=== PATIENT | female | born 2000 | race Caucasian/White ===

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

== ENCOUNTER 2018-03-23 13:50 | Emergency (ER) | payer OTHER, MEDICAID ==
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
[2018-03-23 14:09] VITALS: BP 124/71
[2018-03-23] MEDS ORDERED: ACETAMINOPHEN 325 MG TABLET PO STA (14:39)
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
== END 2018-03-23 16:35 | disposition home or self-care (01) ==
LOC: ED 13:50
DX: S20.312A Abrasion of left front wall of thorax, initial encounter (principal); S16.1XXA Strain of muscle, fascia and tendon at neck level, initial encounter; V43.52XA Car driver injured in collision with other type car in traffic accident, initial encounter
CPT/HCPCS: 72040; 99282; 99283; A9270

== ENCOUNTER 2018-11-30 08:00 | Outpatient (CLI) | payer MEDICAID ==
[2018-11-30 19:23] LABS: BASOPHILS # (AUTO) 0.1 10^3/uL (0.0-0.1); EOSINOPHILS # (AUTO) 0.2 10^3/uL (0.0-0.7); EOSINOPHILS % (AUTO) 2.9 %; HGB - HEMOGLOBIN 13.7 g/dL (12.0-16.0); LYMPHOCYTES # (AUTO) 2.4 10^3/uL (1.5-3.5); LYMPHOCYTES % (AUTO) 37.6 %; MEAN CORPUSCULAR HEMOGLOBIN 29.5 pg (27.0-31.0); MEAN CORPUSCULAR HGB CONC 32.1 g/dL (32.0-36.0); MEAN CORPUSCULAR VOLUME 91.9 fL (81.0-99.0); MEAN PLATELET VOLUME 7.5 fL (7.9-10.8); MONOCYTES # (AUTO) 0.5 10^3/uL (0.0-1.0); MONOCYTES % (AUTO) 7.3 %; NEUTROPHILS # (AUTO) 3.3 10^3/uL (1.5-6.6); NEUTROPHILS % (AUTO) 51.2 %; PLT - PLATELET COUNT 308 10^3/uL (130-450); RED BLOOD COUNT 4.65 10^6/uL (4.20-5.40); RED CELL DISTRIBUTION WIDTH 13.5 % (12.0-15.0); WHITE BLOOD COUNT 6.4 x10^3/uL (4.8-10.8)
[2018-11-30 19:34] LABS: ALBUMIN 4.5 g/dL (3.2-5.5); ALBUMIN/GLOBULIN RATIO 1.4 (1.0-2.2); BILIRUBIN,TOTAL 0.6 mg/dL (0.2-1.0); CALCIUM 9.4 mg/dL (8.5-10.3); CREATININE 0.6 mg/dL (0.4-1.0); TOTAL PROTEIN 7.7 g/dL (6.7-8.2)
[2018-11-30 19:37] LABS: THYROID STIMULATING HORMONE 0.93 uIU/mL (0.34-5.60)
[2018-11-30 19:39] LABS: FREE T4 (FREE THYROXINE) 0.85 ng/dL (0.58-1.64)
[2018-11-30 19:48] LABS: FOLATE 17.57 ng/mL (5.90 - >24.8)
== END 2018-11-30 23:59 | disposition home or self-care (01) ==
LOC: LAB.N 08:00
PROVIDERS: ATTEND Nurse Practitioner
DX: R53.83 Other fatigue (principal); E55.9 Vitamin D deficiency, unspecified
CPT/HCPCS: 36415; 80050; 82306; 82607; 82746; 84439; 84481

== ENCOUNTER 2018-12-15 08:00 | Outpatient (CLI) | payer MEDICAID ==
[2018-12-15 19:39] LABS: BASOPHILS % (AUTO) 0.6 %; EOSINOPHILS # (AUTO) 0.2 10^3/uL (0.0-0.7); EOSINOPHILS % (AUTO) 2.2 %; HGB - HEMOGLOBIN 13.2 g/dL (12.0-16.0); LYMPHOCYTES # (AUTO) 2.6 10^3/uL (1.5-3.5); LYMPHOCYTES % (AUTO) 32.7 %; MEAN CORPUSCULAR HEMOGLOBIN 29.6 pg (27.0-31.0); MEAN CORPUSCULAR HGB CONC 33.4 g/dL (32.0-36.0); MEAN CORPUSCULAR VOLUME 88.6 fL (81.0-99.0); MEAN PLATELET VOLUME 7.6 fL (7.9-10.8); MONOCYTES # (AUTO) 0.4 10^3/uL (0.0-1.0); MONOCYTES % (AUTO) 5.5 %; NEUTROPHILS # (AUTO) 4.6 10^3/uL (1.5-6.6); PLT - PLATELET COUNT 253 10^3/uL (130-450); RED BLOOD COUNT 4.46 10^6/uL (4.20-5.40); RED CELL DISTRIBUTION WIDTH 13.2 % (12.0-15.0); WHITE BLOOD COUNT 7.8 x10^3/uL (4.8-10.8)
[2018-12-15 20:05] LABS: ALBUMIN 4.1 g/dL (3.2-5.5); ALBUMIN/GLOBULIN RATIO 1.4 (1.0-2.2); BILIRUBIN,TOTAL 0.7 mg/dL (0.2-1.0); CALCIUM 9.1 mg/dL (8.5-10.3); CREATININE 0.7 mg/dL (0.4-1.0); TOTAL PROTEIN 7.1 g/dL (6.7-8.2)
[2018-12-15 20:08] LABS: THYROID STIMULATING HORMONE 1.61 uIU/mL (0.34-5.60)
[2018-12-15 20:10] LABS: FREE T4 (FREE THYROXINE) 0.8 ng/dL (0.58-1.64)
[2018-12-15 20:19] LABS: FOLATE 13.31 ng/mL (5.90 - >24.8)
== END 2018-12-15 23:59 | disposition home or self-care (01) ==
LOC: LAB.N 08:00
PROVIDERS: ATTEND Nurse Practitioner
DX: R53.83 Other fatigue (principal); E55.9 Vitamin D deficiency, unspecified
CPT/HCPCS: 36415; 80050; 82306; 82607; 82746; 84439; 84481

== ENCOUNTER 2018-12-16 13:26 | Outpatient (CLI) | payer MEDICAID ==
--- NOTE | 2018-12-16 14:35 | Ultrasound Report ---
Reason: ENLARGED THYROID Procedure Date: 12/16/2018 Accession Number: [id number] / [id number] Procedure: US - Head or Neck Soft Tissue CPT Code: FULL RESULT: EXAM: THYROID ULTRASOUND EXAM DATE: 12/16/2018 01:33 PM. CLINICAL HISTORY: Enlarged thyroid gland, follow-up. COMPARISON: None. TECHNIQUE: Real time sonographic imaging of the thyroid was performed by the brand leader. Multiple call center representative static images were saved for review. FINDINGS: THYROID GLAND: Right Lobe: 6.5 x 1.1 x 1.5 cm, volume 5.6 cc. Diffusely heterogeneous parenchyma with multiple small colloid cysts measuring up to 5 mm maximally. Right Lobe Nodules: No solid nodules evident. Left Lobe: 6.5 x 0.9 x 1.6 cm, volume 5.0 cc. Diffusely heterogeneous parenchyma with multiple small colloid cysts measuring up to 6 mm maximally. Left Lobe Nodules: No solid nodules evident. Isthmus: 0.2 cm AP. Isthmic Nodules: None. LYMPH NODES: No adenopathy demonstrated in the central or lateral compartment. OTHER: None. IMPRESSION: 1. Numerous tiny colloid cysts diffusely measuring up to 5 mm on the right and 6 mm on the left. 2. No solid masses or enlargement. 3. No adenopathy. Management recommendations are based on 2015 [place] [employer] Management Guidelines for Adult Patients with Thyroid Nodules and Differentiated Thyroid Cancer. RADIA
== END 2018-12-16 13:27 | disposition home or self-care (01) ==
LOC: DI 13:26
PROVIDERS: ATTEND Nurse Practitioner
DX: E04.1 Nontoxic single thyroid nodule (principal)
CPT/HCPCS: 76536

== ENCOUNTER 2019-06-23 08:00 | Outpatient (CLI) | payer MEDICAID ==
[2019-06-23 18:55] LABS: BILIRUBIN,URINE NEGATIVE (NEGATIVE); GLUCOSE, URINE (UA) NEGATIVE (NEGATIVE); KETONES,URINE (UA) NEGATIVE (NEGATIVE); LEUKOCYTE ESTERASE, URINE TRACE (NEGATIVE); NITRITE,URINE NEGATIVE (NEGATIVE); OCCULT BLOOD,URINE TRACE-INTA (NEGATIVE); PH,URINE 6.5 PH (5.0-7.5); PROTEIN,URINE NEGATIVE (NEGATIVE); UROBILINOGEN,URINE 0.2 (NORMAL) E.U./dL (NORMAL)
[2019-06-23 19:10] LABS: BACTERIA,URINE Rare /HPF (None Seen); CLARITY,URINE CLEAR (CLEAR); RBC,URINE 0-5 /HPF (0-5); SQUAMOUS EPITHELIAL CELL,UR RARE Squamous (<= Few)
== END 2019-06-23 23:59 | disposition home or self-care (01) ==
LOC: LAB.R 08:00
PROVIDERS: ATTEND Physician Assistant Medical
DX: R10.9 Unspecified abdominal pain (principal); R30.0 Dysuria
CPT/HCPCS: 81001; 81003; 87077; 87086; 87181

== ENCOUNTER 2019-12-04 11:38 | Emergency (ER) | payer MEDICAID ==
[2019-12-04] MEDS ORDERED: cefTRIAXone 1 GM VIAL IM STA (13:00)
[2019-12-04] MEDS ORDERED: LIDOCAINE 1% 2 ML VIAL MC ONE (13:00)
--- NOTE | 2019-12-04 13:05 | ED Physician Documentation ---
History of Present Illness - Stated complaint Stated Complaint: FEMALE - Chief complaint Chief Complaint: General - History obtained from History obtained from: Patient - History of Present Illness Timing: How many days ago (2-3) Pain level max: 7 Pain level now: 6 - Additonal information Additional information: 19-year-old female presents to the emergency department stating that her left labia has been red and swollen. Had similar symptoms in the past with a Bartholin gland cyst. Nothing makes it better. Worse with movement and palpation. Patient denies any possibility of . 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 : None HEENT: None Psych: Depression, Anxiety Musculoskeletal: None Derm: None - Past Surgical History Past Surgical History: Yes HEENT: Tonsil/Adenoidectomy - Present Medications Home Medications: Ambulatory Orders Medication Instructions Recorded Confirmed Acetaminophen/Cod 300/30 [Tylenol 1 tab ORAL TID PRN 08/16/16 08/16/16 #3] Cephalexin [Keflex] 500 mg ORAL BID 08/16/16 08/16/16 Ibuprofen 800 mg ORAL TID 08/16/16 08/16/16 Norgestrel-Ethinyl Estradiol 1 tab ORAL DAILY 08/16/16 08/16/16 [Cryselle-28 Tablet] Clindamycin HCl [Clindamycin 300MG 300 mg PO Q6H #28 capsule 12/04/19 CAP] Oxycodone HCl 5 - 10 mg PO Q6H PRN #14 tablet 12/04/19 - Allergies Allergies/Adverse Reactions: Allergies Allergy/AdvReac Type Severity Reaction Status Date / Time Sulfa (Sulfonamide Allergy Rash Verified 12/04/19 11:47 Antibiotics) - Social History Does the pt smoke?: No Smoking Status: Never smoker Does the pt drink ETOH?: Yes ETOH Use: Wine Does the pt have substance abuse?: No - Immunizations Immunizations are current?: No Immunizations: TDAP current <10years - POLST Patient has POLST: No PD ED PE NORMAL - Vitals Vital signs reviewed: Yes - General General: Alert and oriented X 3, No acute distress - HEENT HEENT: Moist mucous membranes - Neck Neck: Supple, no meningeal sign - Cardiac Cardiac: RRR - Respiratory Respiratory: No respiratory distress, Clear bilaterally - Female Female : Auto Battery Builder present (Nupur RN), Other (L labia swollen and erythematous without induration or fluctuance.) - Derm Derm: Warm and dry - Neuro Neuro: Alert and oriented X 3 - Psych Psych: Normal mood, Normal affect Results - Vitals Vitals: Vital Signs - 24 hr 12/04/19 12/04/19 11:47 11:58 Temperature 37 C 37.2 C Heart Rate 94 98 Respiratory 16 18 Rate Blood Pressure 107/63 111/68 O2 Saturation 96 97 Oxygen O2 Source Room air PD MEDICAL DECISION MAKING - ED course Complexity details: reviewed old records, considered differential, d/w patient ED course: Patient with what appears to be left labial cellulitis versus early Bartholin's gland cyst abscess. We discussed incision and drainage here, but she would like to wait for 24 hours on antibiotics and see if she improves. Given IM Rocephin and oral clindamycin. She is allergic to sulfa. We will have her perform warm water sitz bath as well. She will return tomorrow if she is not improving. Patient counseled regarding signs and symptoms for which I believe and urgent re-evaluation would be necessary. Patient with good understanding of and agreement to plan and is comfortable going home at this time This document was made in part using voice recognition software. While efforts are made to proofread this document, sound alike and grammatical errors may occur. Departure - Departure Disposition: 01 Home, Self Care Clinical Impression: Bartholin's gland infection Condition: Good Instructions: ED Bartholins Cyst IandD Follow-Up: your,doctor in 3 days for wound check [Other] Prescriptions: Clindamycin HCl [Clindamycin 300MG CAP] 300 mg PO Q6H #28 capsule Oxycodone HCl 5 - 10 mg PO Q6H PRN #14 tablet PRN Reason: pain Comments: Take all antibiotics until gone. Return if you worsen. We will trial you on an injection of antibiotics today and oral antibiotics. You should sit in a warm water bath 2-3 times per day and see if this helps the area to drain and improve. If you are worsening or not improving tomorrow, return here and we will perform an incision and drainage at that time. Do not drink alcohol or drive while on narcotic pain medicine. Note that many narcotic pain relievers also contain tylenol/acetaminophen. Please ensure that your total dose of acetaminophen from all sources does not exceed 3 grams (3000mg) per day. You may constipated on this medication, take a stool softener such as "Colace" twice a day while you are on it. Also recommend a ioxq-iee-yxdnsdz laxative such as senna or MiraLAX any day that you do not have a bowel movement. If you received narcotic pain medication in the emergency department, do not drive or operate machinery for the next 24 hours.
[2019-12-04 13:20] VITALS: BP 114/76
== END 2019-12-04 13:28 | disposition home or self-care (01) ==
LOC: ED 11:38
DX: N75.8 Other diseases of Bartholin's gland (principal)
CPT/HCPCS: 96372; 99283; 99284

== ENCOUNTER 2020-07-17 07:00 | Outpatient (CLI) | payer MEDICAID ==
[2020-07-17 22:07] LABS: TRICHOMONAS VAGINALIS DNA NEGATIVE (NEGATIVE)
== END 2020-07-17 23:59 | disposition home or self-care (01) ==
LOC: LAB.R 07:00
PROVIDERS: ATTEND Obstetrics & Gynecology
DX: Z11.3 Encounter for screening for infections with a predominantly sexual mode of transmission (principal)
CPT/HCPCS: 87491; 87591; 87661

== ENCOUNTER 2020-09-28 07:00 | Outpatient (CLI) | payer MEDICAID | END 2020-09-28 23:59 | disposition home or self-care (01) | LOC: COV 07:00 | PROVIDERS: ATTEND Obstetrics & Gynecology | DX: Z01.812 Encounter for preprocedural laboratory examination (principal); N75.0 Cyst of Bartholin's gland; Z20.822 Contact with and (suspected) exposure to COVID-19 ==

== ENCOUNTER 2020-10-26 08:00 | Outpatient (CLI) | payer MEDICAID ==
[2020-10-26 07:46] LABS: BASOPHILS # (AUTO) 0.1 10^3/uL (0.0-0.1); BASOPHILS % (AUTO) 0.8 %; EOSINOPHILS # (AUTO) 0.1 10^3/uL (0.0-0.7); EOSINOPHILS % (AUTO) 2.1 %; HGB - HEMOGLOBIN 13.7 g/dL (12.0-16.0); LYMPHOCYTES # (AUTO) 2.4 10^3/uL (1.5-3.5); LYMPHOCYTES % (AUTO) 38.2 %; MEAN CORPUSCULAR HEMOGLOBIN 30.2 pg (27.0-31.0); MEAN CORPUSCULAR HGB CONC 33.3 g/dL (32.0-36.0); MEAN CORPUSCULAR VOLUME 90.7 fL (81.0-99.0); MEAN PLATELET VOLUME 8.9 fL (7.9-10.8); MONOCYTES # (AUTO) 0.4 10^3/uL (0.0-1.0); MONOCYTES % (AUTO) 6.9 %; NEUTROPHILS # (AUTO) 3.2 10^3/uL (1.5-6.6); NEUTROPHILS % (AUTO) 50.9 %; PLT - PLATELET COUNT 260 10^3/uL (130-450); RED BLOOD COUNT 4.54 10^6/uL (4.20-5.40); RED CELL DISTRIBUTION WIDTH 12.4 % (12.0-15.0); WHITE BLOOD COUNT 6.3 x10^3/uL (4.8-10.8)
== END 2020-10-26 23:59 | disposition home or self-care (01) ==
LOC: LAB 08:00
PROVIDERS: ATTEND Obstetrics & Gynecology
DX: Z01.812 Encounter for preprocedural laboratory examination (principal); N75.0 Cyst of Bartholin's gland; Z20.822 Contact with and (suspected) exposure to COVID-19
CPT/HCPCS: 36415; 85025

== ENCOUNTER 2020-10-31 06:36 | Day surgery (SDC) | payer MEDICAID ==
[~2020-10-31 06:36] MED LIST: ACETAMINOPHEN 1,000 MG/100 ML 100 ML IV ONE; CELECOXIB 100 MG CAPSULE PO ONE; GABAPENTIN 400 MG CAPSULE ONE; ceFAZolin 2 GM/50 ML 2 GM/50 ML BAG IV ONE
[2020-10-31] MEDS ORDERED: LACTATED RINGERS 1,000 ML IV ONE ×2 (06:42→09:28)
[2020-10-31 07:08] LABS: HCG UR QUAL NEGATIVE
[2020-10-31] MEDS ORDERED: LIDOCAINE-MPF 2% 5 ML VIAL ONE (07:08)
[2020-10-31] MEDS ORDERED: ONDANSETRON 4 MG/2 ML VIAL ONE (07:08)
[2020-10-31] MEDS ORDERED: PROPOFOL 200 MG/20 ML VIAL IVP ONE ×2 (07:08→08:52)
[2020-10-31] MEDS ORDERED: KETOROLAC 30 MG/ML VIAL ONE (07:08)
[2020-10-31] MEDS ORDERED: DEXAMETHASONE 4 MG/ML VIAL ONE (07:08)
[2020-10-31] MEDS ORDERED: MIDAZOLAM 2 MG/2 ML VIAL ONE (07:09)
[2020-10-31] MEDS ORDERED: fentaNYL 100 MCG/2 ML VIAL ONE ×2 (07:09→08:53)
[2020-10-31] MEDS ORDERED: BUPIVACAINE 0.25% PF 30 ML VIAL ONE (07:15)
[2020-10-31] MEDS ORDERED: LIDOCAINE 2%-EPI 1:100000 20 ML MDV ONE (07:15)
--- NOTE | 2020-10-31 07:24 | ANESTHESIA ---
Pre-Anesthesia VS, & Labs - Diagnosis recurrent bartholin gland cyst - Procedure marsupialization of bartholin cyst Vital Signs: Temp Pulse Resp BP Pulse Ox 36.5 C 85 12 108/63 98 10/31/20 06:42 10/31/20 06:42 10/31/20 06:42 10/31/20 06:42 10/31/20 06:42 Height: 5 ft 7 in Weight (kg): 84.4 kg Body Mass Index: 29.1 BMI Classification: Overweight - NPO >8 hours - Is Patient ?: No - Lab Results Lab results reviewed: Yes Home Medications and Allergies Home Medications: Ambulatory Orders Etonogestrel [Nexplanon] 68 mg SQ ONCE 10/23/20 Ibuprofen [Motrin] 600 mg PO Q6H PRN 10/23/20 Etonogestrel [Nexplanon] 68 mg SQ ONCE 10/23/20 Ibuprofen [Motrin] 600 mg PO Q6H PRN 10/23/20 Allergies/Adverse Reactions: Allergies Allergy/AdvReac Type Severity Reaction Status Date / Time Sulfa (Sulfonamide Allergy Mild Rash Verified 10/31/20 07:15 Antibiotics) clindamycin Allergy Respiratory Verified 10/31/20 07:15 Anes History & Medical History - Anesthetic History Anesthesia Complications: reports: No previous complications Family history of Anesthesia Complications: Denies Family history of Malignant Hyperthermia: Denies - Medical History Cardiovascular: reports: None Pulmonary: reports: None Gastrointestinal: reports: None Urinary: reports: None Neuro: reports: None Musculoskeletal: reports: None Endocrine/Autoimmune: reports: None Blood Disorders: reports: None Skin: reports: Psoriasis, Rosacea Smoking Status: Current every 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 smoker (vape pen) Psychosocial: reports: Anxiety, Alcohol (daily) - Surgical History Eyes Ears Nose Throat (EENT): Tonsil/Adenoidectomy Exam General: Alert, Oriented x3, Cooperative, No acute distress Dental: WNL Mouth Openin Fingerbreadth Neck Mobility: Normal Mallampati classification: I Respiratory: Lungs clear, Normal breath sounds, No respiratory distress, No accessory muscle use Cardiovascular: Regular rate, Normal S1, Normal S2, No murmurs Plan Anesthesia Type: General Consent for Procedure(s) Verified and Reviewed: Yes Code Status: Attempt Resuscitation ASA classification: 2-Mild systemic disease Is this case an emergency?: No
[2020-10-31] MEDS ORDERED: METOCLOPRAMIDE 10 MG/2 ML VIAL IVP PRN (07:25)
[2020-10-31] MEDS ORDERED: NALOXONE 0.4 MG/ML VIAL IVP PRN (07:25)
[2020-10-31] MEDS ORDERED: ATROPINE ABBOJECT 1 MG/10 ML SYRINGE IVP PRN (07:25)
[2020-10-31] MEDS ORDERED: ePHEDrine 50 MG/ML VIAL IVP PRN (07:25)
[2020-10-31] MEDS ORDERED: HYDROmorphone 0.5 MG/0.5 ML SYRINGE IVP PRN (07:25)
[2020-10-31] MEDS ORDERED: fentaNYL 100 MCG/2 ML VIAL IVP PRN (07:25)
[2020-10-31] MEDS ORDERED: MORPHINE 2 MG/ML CARPUJECT IVP PRN (07:25)
[2020-10-31] MEDS ORDERED: ONDANSETRON 4 MG/2 ML VIAL IVP PRN (07:25)
[2020-10-31] MEDS ORDERED: BUPIVACAINE 0.25% PF 30 ML VIAL SUBQ ONE ×2 (07:29→09:07)
[2020-10-31] MEDS ORDERED: LIDOCAINE 2%-EPI 1:100000 20 ML MDV SUBQ ONE ×2 (07:31→09:08)
[2020-10-31] MEDS ORDERED: LACTATED RINGERS 1,000 ML IV SCH (08:00)
[2020-10-31] MEDS ORDERED: ePHEDrine 50 MG/ML VIAL IVP ONE (08:10)
[2020-10-31] MEDS ORDERED: GLYCOPYRROLATE 1 MG/5 ML VIAL ONE (09:01)
[2020-10-31] MEDS ORDERED: SILVER NITRATE APPLICATOR TOP ONE ×2 (09:09→09:14)
--- NOTE | 2020-10-31 09:41 | OPERATIVE REPORT ---
Operative Report - General Procedure Date: 10/31/20 Planned Procedure: Marsupialization of Bartholin's Gland Cyst Pre-Op Diagnosis: Chronic Bartholin's Gland Cyst Procedure Performed: Marsupialization of Bartholin's Gland Cyst/cyst excision Post Op Diagnosis: Same - Procedure Note Primary Surgeon: Sandra Edwards MD Anesthesia Provider: Emilia Espinoza CRNA Anesthesia Technique: General ET tube Pathology: Bartholin's Gland Cyst Wall IV Fluids (mL): 700 (See Anesthesia record) Estimated Blood Loss (mL): 75 Urine Output (mL): 0 (voided prior to procedure) Indications: 20 yo G0 with recurrent Bartholin's gland cysts s/p drainage x3 here for marsupialization Findings: Enlarged left sided Bartholin's gland about 4 cm in dimension. Ruptured with creamy green discharge Complications: None - Other Other Information/Narrative: Risks benefits and alternatives of the procedure were discussed. Written informed consent was obtained. Patient was taken to the operating room where patient underwent general anesthesia. She was positioned in dorsal lithotomy position with legs resting in yellowfin stirrups. She was prepped and draped in the usual sterile fashion. SCDs were in place and activated. Cefazolin 2 g IV was given as a preoperative antibiotic. Preoperative timeout was performed. A total of 10 cc of % lidocaine with epinephrine and 0.25% bupivicaine was injected into the tissue overlying the Bartholins gland prior to making the incision. A scalpel was used to incise the vaginal/medial aspect of the labia mucosa over the enlarged gland. The cysts was dissected form the cyst bed in a combination of shapr and blunt dissection. The cyst remain intact until the bulk of the dissection was completed. It ruptured and passage of creamy green fluid was extracted. The cyst was removed from the cyst bed and sent to Pathology. The posterior edge of the gland, residual cyst bed was sutured to the edge of the incision with a running locked whip stitch using 3-0 Monocryl. A series of figure of 8 sutures were used to reinforce the suture line to obtain good hemostasis. Silver nitrate was applied to the cyst bed. Cyst bed was irrigated. Good hemostasis was noted. A Word catheter was then inserted into the cyst bed to maintain the orifice during re-epitheliaziation. Good hemostasis noted. Procedure was well-tolerated and without complication. Sponge lap and needle counts were correct x2. Patient was taken to recovery room in stable condition.
--- NOTE | 2020-10-31 09:55 | ANESTHESIA POST OP EVALUATION ---
Anesthesia Post Eval - Post Anesthesia Eval Vitals: Last Vital Signs Temp 36.0 C L 10/31/20 09:50 Pulse 86 10/31/20 09:50 Resp 13 10/31/20 09:50 BP 141/59 H 10/31/20 09:50 Pulse Ox 100 10/31/20 09:50 CV Function Including HR & BP: positive: Stable Pain Control: positive: Satisfactory Nausea & Vomiting: positive: Negative Mental Status: positive: Baseline Respiratory Status: Airway Patent Hydration Status: Satisfactory Anesthesia Complications: positive: None
[2020-10-31 10:27] VITALS: BP 108/56
[2020-10-31] MEDS ORDERED: oxyCODONE 5 MG TABLET ONE (10:38)
== END 2020-10-31 06:37 | disposition home or self-care (01) ==
LOC: SDS 06:36
PROVIDERS: ATTEND Obstetrics & Gynecology
PROC: 0U9L0ZZ Drainage of Vestibular Gland, Open Approach (ICD-10-PCS; principal; 2020-10-31 07:30)
DX: N75.0 Cyst of Bartholin's gland (principal); F17.290 Nicotine dependence, other tobacco product, uncomplicated; E66.3 Overweight; Z68.29 Body mass index [BMI] 29.0-29.9, adult; F41.9 Anxiety disorder, unspecified; Z72.89 Other problems related to lifestyle
CPT/HCPCS: 56440; 81025; A9270; J0131; J0690; J7120

== ENCOUNTER 2021-11-11 08:00 | Outpatient (CLI) | payer MEDICAID | END 2021-11-11 23:59 | LOC: LAB 08:00 | PROVIDERS: ATTEND Family Medicine | DX: R30.0 Dysuria (principal) | CPT/HCPCS: 87086 ==